=== PATIENT | male | born 1985 | race Caucasian/White ===

== ENCOUNTER 2018-03-14 03:49 | Emergency (ER) | payer SELFPAY ==
--- NOTE | 2018-03-14 06:42 | ER Document Report ---
ED General - General Chief Complaint: Foreign Body in Ear Stated Complaint: EAR PAIN Time Seen by Provider: 03/14/18 06:08 Notes: 22-year-old male presents to the ER complaining of right ear pain. Patient stated that he feels as if the bug is crawling to he can feel it moving. He denies any fever chills cough or sore throat denies chest pain denies shortness of breath rates the pain in his ears 10 out of 10 severe. TRAVEL OUTSIDE OF THE [place] IN LAST 30 DAYS: No Past Medical History - Social History Smoking Status: Current Every Day Smoker Family History: None Review of Systems - Review of Systems Constitutional: denies: Chills, Diaphoresis, Fever EENT: Ear pain Cardiovascular: denies: Chest pain, Dyspnea Respiratory: denies: Short of breath Gastrointestinal: denies: Abdominal pain, Nausea, Vomiting, Constipation Genitourinary: denies: Dysuria, Frequency, Flank pain -: Yes All other systems reviewed and negative Physical Exam - Vital signs Vitals: Temp Pulse Resp BP Pulse Ox 97.7 F 56 L 16 121/66 98 03/14/18 03:50 03/14/18 03:50 03/14/18 03:50 03/14/18 03:50 03/14/18 03:50 - Notes Notes: GENERAL_APPEARANCE: well_nourished, alert, cooperative, no_acute_distress, no_ obvious_discomfort. VITALS: reviewed, see vital signs table. HEAD: no_swelling\tenderness on the head. EYES: PERRL, EOMI, conjunctiva_clear. EAR: There is a negron present in the right ear just at the TM. Left ear is unremarkable NOSE: no_nasal_discharge. MOUTH: (-)decreased moisture. THROAT: no_tonsilar_inflammation, no_airway_obstruction. no_lymphadenopathy NECK: supple, no_neck_tenderness, (-)thyromegaly. MENTAL_STATUS: speech_clear, oriented_X_3, normal_affect, responds_ appropriately to questions. Course - Re-evaluation Re-evalutation: 03/14/18 06:40 The patient had a cockroach in his right ear. The broach was able to be flushed out with saline. Patient tolerated this well and will be discharged home. - Vital Signs Vital signs: Temp Pulse Resp BP Pulse Ox 97.7 F 56 L 16 121/66 98 03/14/18 03:50 03/14/18 03:50 03/14/18 03:50 03/14/18 03:50 03/14/18 03:50 Discharge - Discharge Clinical Impression: FB ear Qualifiers: Encounter type: initial encounter Laterality: right Qualified Code(s): T16.1XXA - Foreign body in right ear, initial encounter Condition: Good Disposition: HOME, SELF-CARE Instructions: Foreign Object in the Ear ([facility])
[2018-03-14 06:58] VITALS: BP 114/64
== END 2018-03-14 06:57 | disposition home or self-care (01) ==
LOC: ER 03:49
DX: H92.01 Otalgia, right ear (principal); T16.1XXA Foreign body in right ear, initial encounter; X58.XXXA Exposure to other specified factors, initial encounter
CPT/HCPCS: 99282